=== PATIENT | male | born 1985 | race Caucasian/White ===

== ENCOUNTER 2016-07-20 04:54 | Inpatient (IN) | payer SELFPAY ==
--- NOTE | 2016-07-20 05:38 | EDPHY ---
H & P Source: Patient, EMS Exam Limitations: No limitations Time Seen by Provider: 07/20/16 05:11 HPI/ROS: HPI The patient presents, brought in by EMS after being placed on an M1 psychiatric hold earlier this evening at [facility] where he presented with his brother for concerns for suicidality. Apparently, he sent an e-mail to his brother stating that he was having suicidal thoughts. He said he was not sure if he would see him in the morning. This concerned his brother and thus he brought him in for evaluation. The patient denies any drug or alcohol use. REVIEW OF SYSTEMS Constitutional: No fever, no chills. Eyes: No discharge. ENT: No sore throat. Cardiovascular: No chest pain, no palpitations. Respiratory: No cough, no shortness of breath. Gastrointestinal: No abdominal pain, no vomiting. Genitourinary: No hematuria. Musculoskeletal: No back pain. Skin: No rashes. Neurological: No headache. PMHx: No diabetes, no hypertension Soc Hx: From [place] originally, works at [employer] PHYSICAL General Appearance: Alert, no distress Eyes: Pupils equal and round no pallor or injection ENT, Mouth: Mucous membranes moist Respiratory: There are no retractions, lungs are clear to auscultation Cardiovascular: Regular rate and rhythm Gastrointestinal: Abdomen is soft and non-tender, no masses, bowel sounds normal Neurological: A&O, moves all extremities Skin: Warm and dry, no rashes Musculoskeletal: Neck is supple non tender Extremities: symmetrical, full range of motion Psychiatric: Patient is oriented X 3, there is no agitation (Sarah Anne) Constitutional: Initial Vital Signs Temperature (C) 36.5 C 07/20/16 05:12 Heart Rate 61 07/20/16 05:12 Respiratory Rate 16 07/20/16 05:12 Blood Pressure 140/86 H 07/20/16 05:12 O2 Sat (%) 96 07/20/16 05:12 O2 Delivery Mode Room Air Allergies/Adverse Reactions: No Known Allergies Allergy (Unverified 07/20/16 05:11) Home Medications: Medication Instructions Recorded NK [No Known Home Meds] 07/20/16 Medical Decision Making ED Course/Re-evaluation: 7:30 a.m.- The patient was stable throughout my shift with no complaints. Basic labs were checked and were all unremarkable. The patient is currently awaiting psychiatric evaluation. The case has been signed out to the oncoming provider Dr. Jeffrey Ron. (Sarah Anne) Care assumed at 6:45 a.m. with psychiatric evaluation pending. 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 (Jeffrey Ron) Differential Diagnosis: This is a healthy 30-year-old male who is brought in on an M1 psychiatric hold for concern for suicidality after making statements to his brother that he wanted to end his life. He has no prior psychiatric history and denies any drug use currently. Differential diagnosis includes new onset depression with suicidality, bipolar disorder with suicidality, polysubstance abuse, alcohol intoxication, stress response. (Sarah Anne) - Data Points Laboratory Results: Laboratory Results 07/20/16 05:25 07/20/16 05:25 07/20/16 07/20/16 05:37 05:25 WBC 6.63 10^3/uL (3.80-9.50) RBC 4.82 10^6/uL (4.40-6.38) Hgb 15.3 g/dL (13.7-17.5) Hct 42.6 % (40.0-51.0) MCV 88.4 fL (81.5-99.8) MCH 31.7 pg (27.9-34.1) MCHC 35.9 g/dL (32.4-36.7) RDW 12.4 % (11.5-15.2) Plt Count 173 10^3/uL (150-400) MPV 11.3 fL (8.7-11.7) Neut % (Auto) 60.0 % (39.3-74.2) Lymph % (Auto) 28.4 % (15.0-45.0) [place] % (Auto) 9.4 % (4.5-13.0) Eos % (Auto) 1.4 % (0.6-7.6) Baso % (Auto) 0.5 % (0.3-1.7) Nucleat RBC Rel Count 0.0 % (0.0-0.2) Absolute Neuts (auto) 3.99 10^3/uL (1.70-6.50) Absolute Lymphs (auto) 1.88 10^3/uL (1.00-3.00) Absolute Monos (auto) 0.62 10^3/uL (0.30-0.80) Absolute Eos (auto) 0.09 10^3/uL (0.03-0.40) Absolute Basos (auto) 0.03 10^3/uL (0.02-0.10) Absolute Nucleated RBC 0.00 10^3/uL (0-0.01) Immature Gran % 0.3 % (0.0-1.1) Immature Gran # 0.02 10^3/uL (0.00-0.10) Sodium 141 mEq/L (134-144) Potassium 4.1 mEq/L (3.5-5.2) Chloride 106 mEq/L (97-110) Carbon Dioxide 24 mEq/l (22-31) Anion Gap 11 mEq/L (8-16) BUN 18 mg/dL (7-23) Creatinine 1.0 mg/dL (0.7-1.3) Estimated GFR > 60 Glucose 99 mg/dL (70-100) Calcium 9.3 mg/dL (8.5-10.4) Total Bilirubin 0.5 mg/dL (0.1-1.4) AST 21 IU/L (17-59) ALT 38 IU/L (21-72) Alkaline Phosphatase 30 L IU/L (38-126) Total Protein 7.2 g/dL (6.3-8.2) Albumin 4.4 g/dL (3.5-5.0) Urine Opiates Screen NEGATIVE (NEGATIVE) Urine Barbiturates NEGATIVE (NEGATIVE) Ur Phencyclidine Scrn NEGATIVE (NEGATIVE) Ur Amphetamine Screen NEGATIVE (NEGATIVE) U Benzodiazepines Scrn NEGATIVE (NEGATIVE) Urine Cocaine Screen NEGATIVE (NEGATIVE) U Marijuana (THC) Screen NEGATIVE (NEGATIVE) Ethyl Alcohol < 10 mg/dL (0-10) Departure - Departure Disposition: [facility] IP Clinical Impression: Suicidal ideation Condition: Fair Referrals: [facility] [Outside] - As per Instructions
[2016-07-20 05:54] LABS: ALANINE AMINOTRANSFERASE 38 IU/L (21-72); ALBUMIN 4.4 g/dL (3.5-5.0); ALKALINE PHOSPHATASE 30 IU/L (38-126); ANION GAP 11 mEq/L (8-16); ASPARTATE AMINOTRANSFERASE 21 IU/L (17-59); BILIRUBIN,TOTAL 0.5 mg/dL (0.1-1.4); CALCIUM 9.3 mg/dL (8.5-10.4); CARBON DIOXIDE 24 mEq/l (22-31); CHLORIDE 106 mEq/L (97-110); ETHANOL SERUM < 10 mg/dL (0-10); GLOMERULAR FILTRATION RATE > 60; GLUCOSE 99 mg/dL (70-100); POTASSIUM 4.1 mEq/L (3.5-5.2); SODIUM 141 mEq/L (134-144); TOTAL PROTEIN 7.2 g/dL (6.3-8.2)
[2016-07-20 06:09] LABS: % IMMATURE GRANULYOCYTES 0.3 % (0.0-1.1); ABSOLUTE IMMATURE GRANULOCYTES 0.02 10^3/uL (0.00-0.10); ADD DIFF? NO; ADD MORPH? NO; ADD SCAN? NO; ATYPICAL LYMPHOCYTE FLAG 10 (0-99); FRAGMENT RBC FLAG 0 (0-99); HEMATOCRIT 42.6 % (40.0-51.0); HEMOGLOBIN 15.3 g/dL (13.7-17.5); LEFT SHIFT FLG 0 (0-99); LIPEMIA HEMOLYSIS FLAG 90 (0-99); MEAN CELL HEMOGLOBIN 31.7 pg (27.9-34.1); MEAN CELL HEMOGLOBIN CONCENTR. 35.9 g/dL (32.4-36.7); MEAN CELL VOLUME 88.4 fL (81.5-99.8); MEAN PLATELET VOLUME 11.3 fL (8.7-11.7); PLATELET CLUMPS FLAG 0 (0-99); PLATELET COUNT 173 10^3/uL (150-400); RED BLOOD CELL COUNT 4.82 10^6/uL (4.40-6.38); RED CELL DISTRIBUTION WIDTH 12.4 % (11.5-15.2)
[2016-07-20] MEDS ORDERED: ACETAMINOPHEN 325 MG TAB PO PRN (18:32)
[2016-07-20] MEDS ORDERED: MAGNESIUM HYDROXIDE 30 ML UDCUP PO PRN (18:33)
[2016-07-20] MEDS ORDERED: MAG HYDROX/AL HYDROX/SIMETH 30 ML UDCUP PO PRN (18:33)
[2016-07-20] MEDS ORDERED: diphenhydrAMINE 25 MG CAP PO PRN (18:34)
[2016-07-20] MEDS ORDERED: MELATONIN 3 MG TAB PO PRN (19:52)
--- NOTE | 2016-07-21 07:46 | PDGENHP ---
History and Physical - Chief Complaint suicidal thoughts - History of Present Illness 30 yo male with no significant past medical history brought to ED by his brother after sending an email stating he was having suicidal thoughts and he wasn't sure his brother would see him again. In the ED, he was medically cleared and brought to the behavioral health unit for further evaluation. Today, he denies suicidal thoughts. He denies headache, vision changes, CP, SOB , abdominal pain, N/V/D. He feels better today, but notes his family was worried about him and he willingly accepted their wishes that he get some help. History Information - Allergies/Home Medication List Allergies/Adverse Reactions: amoxicillin trihydrate [From Amoxil] Allergy (Verified 07/20/16 14:35) Rash Home Medications: NK [No Known Home Meds] 07/20/16 [Last Taken Unknown] I have personally reviewed and updated: family history, medical history, social history, surgical history - Past Medical History no pertinent PMH - Surgical History Reports: no pertinent surgical hx - Family History Positive for: non-pertinent - Social History Smoking Status: Former smoker (quit age 22) Alcohol Use: Rarely Drug Use: None Review of Systems ROS: 10pt was reviewed & negative except for what was stated in HPI & below Physical Exam Temp Pulse Resp BP Pulse Ox 36.9 C 51 L 12 95/57 L 99 07/21/16 06:00 07/21/16 06:00 07/21/16 06:00 07/21/16 06:00 07/21/16 06:00 Constitutional: no apparent distress Eyes: PERRL Ears, Nose, Mouth, Throat: moist mucous membranes Cardiovascular: regular rate and rhythym, no murmur, rub, or gallop Respiratory: no respiratory distress, clear to auscultation Gastrointestinal: normoactive bowel sounds, soft, non-tender abdomen Skin: warm Neurologic: AAOx3 Psychiatric: interacting appropriately Lab Data & Imaging Review 07/20/16 05:25 07/20/16 05:25 WBC 6.63 10^3/uL (3.80-9.50) 07/20/16 05:25 RBC 4.82 10^6/uL (4.40-6.38) 07/20/16 05:25 Hgb 15.3 g/dL (13.7-17.5) 07/20/16 05:25 Hct 42.6 % (40.0-51.0) 07/20/16 05:25 MCV 88.4 fL (81.5-99.8) 07/20/16 05:25 MCH 31.7 pg (27.9-34.1) 07/20/16 05:25 MCHC 35.9 g/dL (32.4-36.7) 07/20/16 05:25 RDW 12.4 % (11.5-15.2) 07/20/16 05:25 Plt Count 173 10^3/uL (150-400) 07/20/16 05:25 MPV 11.3 fL (8.7-11.7) 07/20/16 05:25 Neut % (Auto) 60.0 % (39.3-74.2) 07/20/16 05:25 Lymph % (Auto) 28.4 % (15.0-45.0) 07/20/16 05:25 [place] % (Auto) 9.4 % (4.5-13.0) 07/20/16 05:25 Eos % (Auto) 1.4 % (0.6-7.6) 07/20/16 05:25 Baso % (Auto) 0.5 % (0.3-1.7) 07/20/16 05:25 Nucleat RBC Rel Count 0.0 % (0.0-0.2) 07/20/16 05:25 Absolute Neuts (auto) 3.99 10^3/uL (1.70-6.50) 07/20/16 05:25 Absolute Lymphs (auto) 1.88 10^3/uL (1.00-3.00) 07/20/16 05:25 Absolute Monos (auto) 0.62 10^3/uL (0.30-0.80) 07/20/16 05:25 Absolute Eos (auto) 0.09 10^3/uL (0.03-0.40) 07/20/16 05:25 Absolute Basos (auto) 0.03 10^3/uL (0.02-0.10) 07/20/16 05:25 Absolute Nucleated RBC 0.00 10^3/uL (0-0.01) 07/20/16 05:25 Immature Gran % 0.3 % (0.0-1.1) 07/20/16 05:25 Immature Gran # 0.02 10^3/uL (0.00-0.10) 07/20/16 05:25 Sodium 141 mEq/L (134-144) 07/20/16 05:25 Potassium 4.1 mEq/L (3.5-5.2) 07/20/16 05:25 Chloride 106 mEq/L (97-110) 07/20/16 05:25 Carbon Dioxide 24 mEq/l (22-31) 07/20/16 05:25 Anion Gap 11 mEq/L (8-16) 07/20/16 05:25 BUN 18 mg/dL (7-23) 07/20/16 05:25 Creatinine 1.0 mg/dL (0.7-1.3) 07/20/16 05:25 Estimated GFR > 60 07/20/16 05:25 Glucose 99 mg/dL (70-100) 07/20/16 05:25 Calcium 9.3 mg/dL (8.5-10.4) 07/20/16 05:25 Total Bilirubin 0.5 mg/dL (0.1-1.4) 07/20/16 05:25 AST 21 IU/L (17-59) 07/20/16 05:25 ALT 38 IU/L (21-72) 07/20/16 05:25 Alkaline Phosphatase 30 IU/L (38-126) L 07/20/16 05:25 Total Protein 7.2 g/dL (6.3-8.2) 07/20/16 05:25 Albumin 4.4 g/dL (3.5-5.0) 07/20/16 05:25 Urine Opiates Screen NEGATIVE (NEGATIVE) 07/20/16 05:37 Urine Barbiturates NEGATIVE (NEGATIVE) 07/20/16 05:37 Ur Phencyclidine Scrn NEGATIVE (NEGATIVE) 07/20/16 05:37 Ur Amphetamine Screen NEGATIVE (NEGATIVE) 07/20/16 05:37 U Benzodiazepines Scrn NEGATIVE (NEGATIVE) 07/20/16 05:37 Urine Cocaine Screen NEGATIVE (NEGATIVE) 07/20/16 05:37 U Marijuana (THC) Screen NEGATIVE (NEGATIVE) 07/20/16 05:37 Ethyl Alcohol < 10 mg/dL (0-10) 07/20/16 05:25 Assessment & Plan Assessment: Suicidal ideation (Acute) There is no evidence of a medical etiology of his mood disorder. He is appropriately admitted to for psychiatric evaluation. No acute medical issues. He is otherwise healthy.
--- NOTE | 2016-07-21 11:17 | SOAPPROG ---
VARSHA Progress Note Assessment/Plan: Assessment: Plan: Objective: Vital Signs Temp Pulse Resp BP Pulse Ox 36.9 C 51 L 12 95/57 L 99 07/21/16 06:00 07/21/16 06:00 07/21/16 06:00 07/21/16 06:00 07/21/16 06:00 ICD10 Worksheet Patient Problems: Problems Problem Status Diagnosed Suicidal ideation Acute
[2016-07-21] MEDS ORDERED: risperiDONE 0.5 MG TAB PO SCH (21:00)
--- NOTE | 2016-07-22 06:08 | BAPA ---
[f rep st] ADMISSION PSYCHIATRIC ASSESSMENT DATE OF SERVICE: 07/21/2016 CHIEF COMPLAINT: "My brother had a scare with me 2 nights ago, I wanted to go out on a bike ride around town to get out of the house, I felt overwhelmed with emotions and weird thoughts... He chased me down on a bike, we went for dinner. I have been going through tough times, I told him 99% chance I would be there tomorrow. I don't think I would have hurt myself." HISTORY OF PRESENT ILLNESS: The patient is a 30-year-old single male brought [facility] by his brother, who has been highly concerned regarding his recent behaviors and suicidal ideation expressions. He has been giving property away, emailing his spiritual guru that he was planning to , and wanted advice on the after life. Brother also reported the patient was barely functioning since moving to [place] from [place] in January 2016. Information from mother includes concern about patient having an underlying diagnosis of schizophrenia or schizoaffective disorder. She volunteered much collateral information prior to evaluation of the patient. She states he has been having many negative thoughts and has been unable to function because of them. He has reported a white light and experiencing of a white light piercing his body, spiritual beings taking over and suicidal ideation over the past couple of weeks. Mother reports the patient has been following a spiritual guru online named Shaina Swann, and attending his seminars, paying 160 dollars for 10 minutes on the phone for a counseling session, paying 2000 dollars per month to obtain supplements, and more recently sending an email to this guru telling him he has decided to commit suicide and would like to know how he could be helpful in the after life for him. He then told the guru by e-mail that this would be his last contact with him, asking him to please contact and in return after which he will delete the e-mail so there would be no issues. Additionally, according to mother, patient has spent large sums of money including 200,000 dollars over the past year on dialysis for his dog diagnosed with Lyme disease, who ultimately last year. He has been perseverating on a girl with whom he went on 1 date, 3-4 years ago. She apparently was not interested, but more recently he has been perseverating on this relationship, having bought a 2nd car just like hers, (the patient already had a car) and thought it would impress her to drive it from [place] to [place] and try to find her. This occurred in April 2016. Thereafter, he decided to donate the car on [employer] to anyone who may need one, after abandoning it at the airport. He had been living in hotels, also recently spent 5000 dollars on new clothes, then gave them all away to [employer]. He impulsively rescued 2 senior living dogs, stayed in several hotels, each of which he was kicked out of due to damage done by the dogs, and having to pay for this damage. This also occurred in [place] recently. Mother adds he has been decreasing communication with friends, increasingly isolative and withdrawn. He has been "selling off everything" or donating, seems to be responding to internal stimuli as he kept stating "stop" repeatedly in the middle of dinner to no one there. She reports he has an awareness of having trouble controlling his thoughts, but also minimizes and is very resistant to any psychiatric intervention or treatment. He has been living with his brother in an attempt to gain more stability over the last several months; however, brother has been increasingly concerned, and the night before admission had dinner with brother, told him, "he might not make it until tomorrow" and brother was concerned to the point that he also hid all the knives. The patient's parents are very supportive and have come from [place] to be supportive and out of significant concern for the patient. On interview with the patient, patient reports having had a not so good visit on the unit with his mother and brother, stating because "sometimes I have a hard time keeping up with conversation." He discussed his precipitants to hospitalization, stating he did not think he would really have hurt himself, feeling "mostly upset at myself...I can't take that leap of clara to go forward in life." He understood why his brother took him to get help and apparently after evaluation at the crisis center, he was placed on an M1 hold and brought by police to [facility] ED for further evaluation. The patient was able to state "I have been acting weird for a few months, stuck in time, trouble moving forward, it's hard to keep up with conversations, I get sidetracked with my thoughts." He reports trying to control himself in social situations being exquisitely focused on how he acts, and "trouble keeping up with normal reality." He talked of not being able to mind his own business, because he keeps getting sidetracked trying to mind his own business. When asked about his recent trip to [place] to search for this girl he went on a date with once 3 or 4 years ago, he had difficulty explaining why he did so. He stated "the girl I liked got with another maik, that was embarrassing and it is hard to recover self-esteem after this. I kept trying to become the type of maik, a normal maik, not afraid to be myself." Further in interview, patient continued to talk of having difficulty getting his "act together," describing this as "inner stability." He is not sure how to obtain inner stability, but once doing so, "I will be free, then I will talk about something I should not worry about, not talk about myself, or think about how I have acted in the past , it is hard to get my thoughts out." He further talked of "one or the other, once on the path of thinking, something comes over me like a veil of thought...completely jump and try to be normal and I can be there for a short moment, but there is nothing to tie me down there." The patient denied feeling depressed or sad but endorsed "zapped of energy" as the day progresses. Too much commotion zaps his energy, he tries very hard to control his environment. Patient related experiences of going out to drink recently at a bar, and felt the energy of the room shifting. Prior to his entry, everyone seemed to be keeping to themselves in the bar, but when he walked in "everyone brightened, and livened up." He felt previously he had no social life and after this occurred, he kept trying to recreate this experience since 2012. This experience felt meaningful. Thereafter, he frequently watched to see if he would have a similar affect on others in other situations. He did not feel like he could control this, but felt he understood as "me coming into myself, a late paul." He admits this experience was enhanced by marijuana use, which he would use 5 times per week, but then none for 1-2 weeks. He denied any other significant substance use. SUBSTANCE USE HISTORY: Started marijuana use at age 15. Alcohol age [age], infrequently, currently approximately 1-2 beers per week. No current marijuana. Last used 2-3 months ago. He gave marijuana up because he found it not necessary and causing him to be more lazy, less social. Tried cocaine once , a few times tried hallucinogens, "They were fun," but none times several years. Denies opiate abuse except perhaps taking an extra week of prescribed pain medication after his tooth extraction and perhaps he did not actually need it. Has used ecstasy 2-3 times in the past at a concert, felt "super good" and ran 5-10 miles the next day. Only legal history is citation in high school for marijuana possession. MEDICATIONS: Denies any current medications although has numerous herbs and supplements, per mother, at his home. The patient only endorsed taking Spirulina, Chlorella, random greens, protein powder, and a bunch of Purium refined nutrients. He reports currently drinking 1 shake once or twice daily of this refined nutrient drink. States he feels "pretty awesome just drinking these", and during the summer of 2015, he exclusively drank the shakes with no solid food otherwise, although he admits he would purchase some nuts at the end of the day. His affect brightened in discussing this, stating he felt "super healthy, clean, and clear, and lost a lot of weight." PAST PSYCHIATRIC HISTORY: No reported formal psychiatric diagnosis although mother states their going diagnosis is schizophrenia or schizoaffective disorder after extensive research. Patient did see Dr. Yunior Rasmussen once, April 2016. Shortly thereafter, patient took off back to [place] and did reluctantly agree or promise his family he would follow up with psychiatry there , saw a Dr. Torres in [place] for approximately 8 visits in 1 month. Latuda was prescribed; patient found it ineffective and did not continue. Also tried Seroquel, which was very over sedating. No other history of psychiatric medications or therapy. No prior psychiatric hospitalizations. PAST MEDICAL HISTORY: Patient reports hospitalized at age 15 with viral meningitis, was "super sick, in an out of consciousness", hospitalized for 2 and a half weeks in [place], [place], at [place]. States this admission was prolonged due to lumbar puncture complications. Additionally, had a medical workup at age 17 for low white blood cell count, with concerns for leukemia, but workup was negative, and apparently no further issues. The patient relates it to possibly being "a terrible hangover." Additionally, the patient reports suffering a concussion at age 12 due to a snowboarding accident. Otherwise, reports he is healthy with no current physical complaints. LEGAL HISTORY: Citation for marijuana possession once in high school. FAMILY PSYCHIATRIC HISTORY: Paternal aunt and cousin have some type of mental illness. PSYCHIATRIC REVIEW OF SYSTEMS: The patient denied feeling depressed or sad, endorsed low energy, feeling he would be "zapped" throughout the day related to his environment. He endorsed periods of feeling good with increased energy and decreased sleep lasting for a couple of weeks at a time, with energy surging through him. During this time, he felt "like I had a goal or purpose and driven to do it...to become enlightened." Also, would go on shopping sprees but then denied. Has had periods of time where he felt like he had a connection with God and other higher beings. During this time, he felt like "a stone cold bad ass" and really liked this feeling. [place] the universe was helping him, then this feeling would be lost. He would feel empty, "like I missed my chance after the universe force pushed me to try to be the best I could be" and that he fell because he tried to be better. Feels guilt and he has the burden to live with this "scar," of failure, shame, and regret. Does not clearly endorse auditory hallucinations, denies any periods of excessive talkativeness, however, endorsed that his thoughts "jump around" regardless of his mood, and do not feel organized, rather "jumbled." Denied hearing voices, but reports hearing song verses on repeat. This interferes with concentration, is intrusive and audible. Elaborates then by stating it is his own voice interpreting the wagner's lyrics, not actually music. He then talked of energy getting translated into song lyrics, was not able to share this because states the lyrics are frequently offensive. They are intrusive and cannot push them away and do interfere with his concentration. Denied thought withdrawal. Did indicate thought insertion at times, described it as "intuitive knowing, sometimes a faint voice," feeling that "the universe puts direction into my heart and sole, which is a good feeling, but you dig your own grave..." Denied any history of previous suicidal ideation, except brief and fleeting, gives example of driving, feeling overwhelmed with thoughts or stuck in his thoughts, then feels "I want to f'ing kill myself, so I step on the gas pedal really hard for a few seconds," then releases and views this as a passing feeling, not really wanting to kill himself. States currently he does not have suicidal ideation, admits he did write someone an e-mail, (the [employer]) asking about life after but was "not immediately thinking about this, not planning to take it into my own hands, because I know that is not a good way to go." Finds himself more concerned about inability to move forward. MENTAL STATUS EXAM: On admission, neatly dressed, calm, cooperative, good eye contact. Normal psychomotor activity. Normal speech rate, volume, articulate. Fair eye contact. Mood: Fine. Affect: Restricted, controlled. Thought processes: Illogical, vague, circumferential, at times with thought blocking, but did not appear responding to internal stimuli. Did endorse experiences of thought insertion, ideas of reference, and auditory hallucinations, but then retracted and minimized this information. Denied suicidal ideation or homicidal ideation. Thought content notable for describing intrusive thoughts and obscene lyrics, feeling "stuck" with his thoughts, which are very internally distracting and interfere with thoughts he wants to have. Insight good into having difficulties with thoughts, poor into need for help. Judgment impaired due to mental illness. Alert and oriented x3. IMPRESSION: A 30-year-old single male with no former previous psychiatric diagnosis; however, based on history and self report, has been experiencing symptoms of a mental illness for quite some time with gradual decline in functioning socially and interpersonally. Patient describes periods of time suggestive of marlin, also low mood, but more predominantly experiencing struggles with intrusive unwanted thoughts, confused jumbled thoughts, difficulty engaging in conversation and communicating because of his thoughts, and describes other psychotic symptoms as noted above. Patient has engaged in several erratic behaviors involving excessive spending, impulsive travel, as well as other irrational erratic behaviors. He does endorse a history of marijuana use, but not recently. Family is close and very concerned about patient. It is unclear whether patient does not recognize his extreme behaviors or is unaware of them or minimizing them. Mother has written an extensive timeline, copied, saved several emails, and other concerning information to assist with patient obtaining psychiatric treatment and appropriate diagnosis. The patient has in the past "disappeared for months" per mother, just taking off spontaneously and not contacting anyone in the past when he feels family was close to trying to get him help. Family is concerned he may do this again and do fear for his safety based on precipitants to hospitalization and his suicidal ideation with the delusional thinking. Patient is in need of inpatient psychiatric hospitalization and meets criteria for admission. ADMISSION DIAGNOSES: 1. Schizophrenia spectrum disorder, rule out schizoaffective disorder acute, rule out schizophrenia. 2. Cannabis use disorder unspecified. PLAN: After discussion, patient did agree to trial of Risperdal 0.5 mg p.o. q.h.s. Was hoping instead to take medication and be discharged, was surprised by offer to start taking it on the unit. Does have a history of noncompliance with treatment, considering this medication as it does come in long-acting injectable if this were to be considered in the future. Continue on M1 hold, will likely require short-term certification for continued treatment, assessment , and safety. No acute medical issues. Encourage group attendance and participation with activities on unit. Estimated length of stay is 5-7 days. /[id number]/MODL MTDD
[2016-07-22 06:33] VITALS: O2SAT 96
[2016-07-22] MEDS ORDERED: risperiDONE 0.5 MG TAB PO SCH (10:55)
--- NOTE | 2016-07-22 11:35 | SOAPPROG ---
SOAP Progress Note Assessment/Plan: Assessment:PT is a 31 y/o S C male with no previous psych hx admitted on an M 1 for psychotic sx. Plan: PT will sign in VOL increase Risperdal to 2mg QHS 07/22/16 11:33 Subjective: Pt reports he is trying to figure his life out. Objective: Vital Signs Temp Pulse Resp BP Pulse Ox 36.6 C 48 L 14 133/71 H 96 07/22/16 06:00 07/22/16 06:00 07/22/16 06:00 07/22/16 06:00 07/22/16 06:00 Pt is A+O x4 mood-euthymic affect-appr thoughts-vague, illogical no A/V H no S/H I slept 8 hours + bizarre thoughts speech-rambling +LOBO + delusions I/J-limited - Time Spent With Patient Time Spent With Patient: 25' - Pending Discharge Pending Discharge Within 24 Hours: No Pending Discharge Within 48 Hours: No ICD10 Worksheet Patient Problems: Problems Problem Status Diagnosed Suicidal ideation Acute
[2016-07-22] MEDS: LORazepam 1 MG TAB PO PRN (17:30)
[2016-07-22] MEDS: risperiDONE 2 MG TAB PO SCH (21:04)
[2016-07-23 07:48] VITALS: BP 100/54; PULSE 66; RESP 13; TEMP 97.5
--- NOTE | 2016-07-23 12:07 | SOAPPROG ---
VARSHA Progress Note Assessment/Plan: Assessment:PT is a 31 y/o S C male with no previous psych hx admitted on an M 1 for psychotic sx. Plan: Pt requested D/C last night so put on an M1 con't Risperdal to 2mg QHS-pt is taking and denies side effects pt is going to groups family meeting tomorrow at 11am D/C to [facility] if stable 07/23/16 12:04 Subjective: "I am not insane." Objective: Vital Signs Temp Pulse Resp BP Pulse Ox 36.4 C 66 13 100/54 L 96 07/23/16 06:00 07/23/16 06:00 07/23/16 06:00 07/23/16 06:00 07/23/16 06:00 Pt is A+O x4 mood-euthymic affect-appr denies A/V H + odd beliefs about energy going through his body denies S/H I sleep/appetite/energy level-wnl no sx marlin thoughts-vague but more logical speech-wnl memory-intact is attending groups I/J-limited but is taking meds - Time Spent With Patient Time Spent With Patient: 25' - Pending Discharge Pending Discharge Within 24 Hours: No Pending Discharge Within 48 Hours: Yes Pending Discharge Date: 07/25/16 Pending Discharge Time: 11:00 ICD10 Worksheet Patient Problems: Problems Problem Status Onset Suicidal ideation Acute
[2016-07-23] MEDS: LORazepam 1 MG TAB PO PRN (15:53)
[2016-07-23] MEDS: risperiDONE 2 MG TAB PO SCH (21:26)
--- NOTE | 2016-07-24 14:29 | BDS ---
[[facility]] BEHAVIORAL HEALTH DISCHARGE SUMMARY CHIEF COMPLAINT: "My brother had a scare with me 2 nights ago. I wanted to go out on a bike ride around town to get out of the house. I felt overwhelmed with emotions and weird thoughts. He chased me down on the bike. We went for dinner. I have been going through tough times. I told him 99 chance I would be there tomorrow. I don't think I would've hurt myself." HISTORY OF PRESENT ILLNESS: The patient is a 31-year-old male who is currently living with his brother, who was unemployed, whose family reports bizarre behaviors over the past 4-5 years. Recently, he has been having bizarre behavior such as giving property away, emailing his spiritual guru stating he was planning to and wanted advice on the afterlife and had made several suicidal statements. Mother reported the patient has been barely functioning since moving to [place] in January of 2016. Parents provided a timeline over the past 4-5 years with patient with delusions, bizarre thoughts, illogical thoughts, bizarre activity, spending a large sum of money on inappropriate things such as a car; * the same car that a girl he dated once 3- 4 years ago had and then not wanting to sell it for ethical reasons) and getting involved with a spiritual gurus in order to try to treat himself. DIAGNOSIS ON ADMISSION: 1. Schizophrenia spectrum disorder. Rule out schizoaffective disorder, acute. Rule out schizophrenia. 2. Cannabis use disorder, unspecified. GAF-20 HOSPITAL COURSE: The patient was started on Risperdal 0.5 mg q.h.s. by the admitting psychiatrist, Dr. Mayers. This was then increased to 2 mg q.h.s. by this MD. After the patient's M1 , he signed in voluntarily and later that night he wanted to leave. A full evaluation had not been conducted so he was put back on an M1 due to his recent suicidal statements. His thoughts improved on the Risperdal. He was attending groups and activities. He still had vague and illogical thoughts at times, however no formal delusions just bizarre thoughts about spirituality. A meeting was held with his family, with the medicare sales representative, and this MD the day of discharge to discuss possible diagnosis of schizophrenia, treatment, and referral to [facility]. The patient was interested in going to [facility]. However, he could not accept the schizophrenia diagnosis. He did agree to taking the medication as he did not have any side effects and was told the positive things it could do. He was discharged with his parents. The patient states he rarely smokes marijuana. He was told about the dangers of using marijuana, that it can make people psychotic and worsen psychotic symptoms. The patient's labs were within normal limits. CBC was within normal limits. Chem panel was within normal limits. Urine tox was negative. The patient denied suicidal ideation or auditory or visual hallucinations throughout his hospitalization. MENTAL STATUS ON DISCHARGE: The patient is alert and oriented x4. Mood is euthymic. Affect is appropriate. The patient denies suicidal or homicidal ideation. Denies auditory or visual hallucinations. Thoughts are vague and illogical at times. Speech is mostly monotone. Sleep, appetite, and energy level are within normal limits. No formal delusions. The patient is taking care of his ADLs. Memory, concentration, fund of knowledge, IQ are within normal limits. Insight and judgment are fair. The patient is willing to take medication and attend [facility] outpatient treatment program. DISCHARGE MEDICATIONS: Risperdal 2 mg q.h.s. DIAGNOSIS ON DISCHARGE: 1. Schizophrenia spectrum disorder. Rule out schizoaffective disorder, acute. Rule out schizophrenia. 2. Cannabis use disorder, unspecified. 3. Global Assessment of Functioning on discharge is 50. DISCHARGE PLAN: The patient will follow up with [facility]. He has an appointment tomorrow at 9 o'clock. He was discharged with his parents after a family meeting. He is medically and psychiatrically stable for discharge and was discharged voluntarily. /[id number]/MODL MTDD
== END 2016-07-24 12:10 | disposition home or self-care (01) | DRG 885 ==
LOC: BBEH 15:25
PROVIDERS: ADMIT Psychiatry & Neurology Psychiatry; ATTEND Psychiatry & Neurology Psychiatry
DX: F20.9 Schizophrenia, unspecified (principal); F12.90 Cannabis use, unspecified, uncomplicated
CPT/HCPCS: 80305; G0480